=== PATIENT | female | born 1965 | race Caucasian/White ===

== ENCOUNTER 2018-06-01 16:24 | Emergency (ER) | payer OTHER, SELFPAY ==
[2018-06-01 16:44] VITALS: BP 138/82; PULSE 60; RESP 18; TEMP 36.8; O2SAT 100; BMI 35.7
[2018-06-01 17:27] LABS: Alanine Aminotransferase 34 IU/L (9-52); Albumin 4.7 g/dL (3.5-5.0); Albumin Globulin Ratio 1.5 (1.0-2.8); Alkaline Phosphatase 76 U/L (38-126); Aspartate Aminotransferase 34 IU/L (14-36); BUN Creatinine Ratio 18.3 (6-22); Bilirubin Total 0.4 mg/dL (0.2-1.3); Blood Urea Nitrogen 11 mg/dL (7-17); Calcium 9.6 mg/dL (8.4-10.2); Carbon Dioxide 30 mmol/L (22-32); Chloride 104 mmol/L (98-107); Estimated Glomerular Filt Rate > 60.0 mL/min (>60); Globulin 3.2 g/dL (1.7-4.1); Glucose 103 mg/dL (70-100); HEMOLYSIS 28 (0-50); Lipase 91 U/L (23-300); Potassium 4.1 mmol/L (3.4-5.1); Sodium 146 mmol/L (137-145); Total Protein 7.9 g/dL (6.3-8.2)
[2018-06-01 17:30] LABS: Add Manual Diff / Slide Review NO; Basophils Percent Auto 0.4 % (0-2); Eosinophils Percent Auto 2.3 % (2-4); Hematocrit 41.9 % (36-46); Hemoglobin 14.1 g/dL (12.0-16.0); Lymphocytes Percent Auto 37.5 % (25-40); Mean Corpuscular HGB Conc 33.6 % (30-36); Mean Corpuscular Hemoglobin 29.4 PG (26-34); Mean Corpuscular Volume 87.7 fL (80-100); Monocytes Percent Auto 6.5 % (3-14); Neutrophils Absolute Auto 4000 /uL (3000-5900); Neutrophils Percent Auto 53.3 % (50-75); Platelet Count 261 X10^3/uL (150-400); Red Blood Cell Count 4.77 X10^6/uL (4.0-5.2); Red Cell Distribution Width 12.2 % (11.6-14.8); White Blood Cell Count 7.6 X10^3/uL (4.5-11.0)
--- NOTE | 2018-06-01 18:01 | ED_ITS ---
HPI - Abdominal Pain <ERICK Arriola Last Filed: 06/01/18 22:27> General Chief Complaint: Abdominal Pain Stated Complaint: ABD PAIN Time Seen by Provider: 06/01/18 18:00 Source: patient Mode of arrival: ambulatory Limitations: no limitations History of Present Illness HPI narrative: This 52-year-old female comes to ED today due to right-sided abdominal pain. She states that this started on with epigastric/mid abdominal pain. She states that this has gradually moved to the right side, feels mostly in the midline and lower quadrants. She states that initially it would get worse off and on, now it is more dull and persistent. She thinks initially pain worsened with the eating because her abdomen felt distended. She does not think there are exacerbating or alleviating features now. She states that she has had some constipation with more difficulty with bowel movements. Drank some smooth move and had a normal bowel movement this morning. She denies any urinary symptoms. She has not had any nausea or vomiting but has had decreased appetite. She denies any fever at home. She denies any chest pain, dyspnea, new pain or swelling in her extremities. She has not been ill recently with any cough, rash, or other new symptoms. She states that this pain has not acutely worsened at all today, [place] doctor's office told her to would not be able to do much workup there if needed. Related Data Home Medications Medication Instructions Recorded Confirmed DIAZEPAM (Valium) 10 mg PO PRN #0 09/07/10 Fluoxetine Hydrochloride (Prozac) 0 mg PO Q DAY #0 09/07/10 Allergies Allergy/AdvReac Type Severity Reaction Status Date / Time clindamycin Allergy Rash Verified 06/01/18 16:52 Penicillin Allergy Unknown Swelling Uncoded 06/01/18 16:52 of Lip/Tongue/Throat Review of Systems <ERICK Arriola Last Filed: 06/01/18 22:27> Review of Systems All systems reviewed & are unremarkable except as noted in HPI and below PFSH <ERICK Arriola Last Filed: 06/01/18 22:27> Comment: Quit smoking 1993, 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 HEENT: PERRL, EOMI, no scleral icterus NECK: Supple LUNGS: Clear to auscultation bilaterally. HEART: Rate and rhythm regular, normal S1 and S2, no S3 or S4. ABDOMEN: Soft, nondistended, bowel sounds present x 4 quadrants, no masses palpable, no hepatosplenomegaly. Tender over the right epigastrium, mid to lower right quadrant without guarding or rebound. Mild right upper quadrant tenderness. Negative Gamboa's sign. No tenderness over the left side. No CVAT EXTREMITIES: No edema, no cyanosis, no calf tenderness DERMATOLOGIC: No jaundice or exanthem NEUROLOGIC: Alert and oriented with normal speech and coordination Initial Vital Signs Initial Vital Signs: Vital Signs Temperature 98.2 F 06/01/18 16:44 Pulse Rate 60 06/01/18 16:44 Respiratory Rate 18 06/01/18 16:44 Blood Pressure 138/82 06/01/18 16:44 Pulse Oximetry 100 06/01/18 16:44 <Tye Connelly DO - Last Filed: 06/02/18 02:30> Initial Vital Signs Initial Vital Signs: Vital Signs Temperature 98.2 F 06/01/18 16:44 Pulse Rate 60 06/01/18 16:44 Respiratory Rate 18 06/01/18 16:44 Blood Pressure 138/82 06/01/18 16:44 Pulse Oximetry 100 06/01/18 16:44 Course <Anjelica Burnham PA-C - Last Filed: 06/01/18 22:27> Additional Information: Patient reported some improvement in pain while here, tolerating oral fluids. She has not had any acute worsening in her pain, nor new symptoms such as vomiting or fever. Advised there do not appear to be any acute or surgical findings on CT tonight. Advised there could be some uterine fibroids but those are more likely to be chronic, not a clear source of her pain. Discussed the importance of serial abdominal exams, and she agrees to follow up with her PCP tomorrow. Advised further workup may be needed such as sewer inspector or gastroenterology evaluation, but also that this could be a different cause i.e. musculoskeletal. Advised to return if any acutely worsening symptoms , and she is agreeable Orders Ordered: ED Orders 06/01/18 18:23 CT abdomen pelvis w con Stat Discontinued Medications Hydrocodone Bitart/Acetaminophen ([place] 5/325) 1 tab PO NOW ONE Stop: 06/01/18 18:33 Last Admin: 06/01/18 19:25 Dose: 1 tab Sodium Chloride (Normal Saline 0.9%) 1,000 mls @ 150 mls/hr IV CONT EDDIE Last Admin: 06/01/18 20:31 Dose: Not Given Sodium Chloride (Normal Saline 0.9%) 1,000 mls @ 1,000 mls/hr IV BOLUS ONE Stop: 06/01/18 19:22 Last Infusion: 06/01/18 20:31 Dose: 0 mls/hr Admin: 06/01/18 19:00 Dose: 1,000 mls/hr Ketorolac Tromethamine (Toradol) 30 mg IV NOW ONE Stop: 06/01/18 18:24 Last Admin: 06/01/18 19:00 Dose: 30 mg Vital Signs - 8 hr 06/01/18 19:30 06/01/18 20:37 Pulse Rate 74 58 L Respiratory Rate 18 14 Blood Pressure 114/54 L Blood Pressure [Left Arm] 124/64 Pulse Oximetry 98 98 <Tye Connelly, DO - Last Filed: 06/02/18 02:30> Orders Ordered: ED Orders 06/01/18 18:23 CT abdomen pelvis w con Stat Discontinued Medications Hydrocodone Bitart/Acetaminophen ([place] 5/325) 1 tab PO NOW ONE Stop: 06/01/18 18:33 Last Admin: 06/01/18 19:25 Dose: 1 tab Sodium Chloride (Normal Saline 0.9%) 1,000 mls @ 150 mls/hr IV CONT EDDIE Last Admin: 06/01/18 20:31 Dose: Not Given Sodium Chloride (Normal Saline 0.9%) 1,000 mls @ 1,000 mls/hr IV BOLUS ONE Stop: 06/01/18 19:22 Last Infusion: 06/01/18 20:31 Dose: 0 mls/hr Admin: 06/01/18 19:00 Dose: 1,000 mls/hr Ketorolac Tromethamine (Toradol) 30 mg IV NOW ONE Stop: 06/01/18 18:24 Last Admin: 06/01/18 19:00 Dose: 30 mg Vital Signs - 8 hr 06/01/18 19:30 06/01/18 20:37 Pulse Rate 74 58 L Respiratory Rate 18 14 Blood Pressure 114/54 L Blood Pressure [Left Arm] 124/64 Pulse Oximetry 98 98 MDM - Abdominal Pain <Anjelica Burnham PA-C - Last Filed: 06/01/18 22:27> Lab Data Attestation: I reviewed the patient's lab results. Result diagrams: 06/01/18 17:05 06/01/18 17:05 Lab Results 06/01/18 06/01/18 Range/Units 17: 17:05 WBC 7.6 (4.5-11.0) X10^3/uL RBC 4.77 (4.0-5.2) X10^6/uL Hgb 14.1 (12.0-16.0) g/dL Hct 41.9 (36-46) % MCV 87.7 (80-100) fL MCH 29.4 (26-34) PG MCHC 33.6 (30-36) % RDW 12.2 (11.6-14.8) % Plt Count 261 (150-400) X10^3/uL Neut % (Auto) 53.3 (50-75) % Lymph % (Auto) 37.5 (25-40) % Custer % (Auto) 6.5 (3-14) % Eos % (Auto) 2.3 (2-4) % Baso % (Auto) 0.4 (0-2) % Neut # (Auto) 4000 (4892-6657) /uL Sodium 146 H (137-145) mmol/L Potassium 4.1 (3.4-5.1) mmol/L Chloride 104 (98-107) mmol/L Carbon Dioxide 30 (22-32) mmol/L BUN 11 (7-17) mg/dL Creatinine 0.60 (0.52-1.04) mg/dL Estimated GFR > 60.0 (>60) mL/min BUN/Creatinine Ratio 18.3 (6-22) Glucose 103 H (70-100) mg/dL Calcium 9.6 (8.4-10.2) mg/dL Total Bilirubin 0.4 (0.2-1.3) mg/dL AST 34 (14-36) IU/L ALT 34 (9-52) IU/L Alkaline Phosphatase 76 (38-126) U/L Total Protein 7.9 (6.3-8.2) g/dL Albumin 4.7 (3.5-5.0) g/dL Globulin 3.2 (1.7-4.1) g/dL Albumin/Globulin Ratio 1.5 (1.0-2.8) Lipase 91 (23-300) U/L Point of care testing: Urine Dip Bedside Urine Glucose Negative Bedside Urine Bilirubin - Negative Bedside Urine Ketone - Negative Urine Specific [place] 1.015 Bedside Urine Occult Blood - Negative Bedside Urine pH 6.0 Bedside Urine Protein - Negative Bedside Urine Urobilinogen - Negative Bedside Urine Nitrite - Negative Bedside Urine Leukocytes - Negative Esterase Imaging Data CT scan - abdomen: Radiologist's impression: [address] [address] [address] Scan Report Signed Patient: Christa Eddy#: [id number] : 1965Acct:[id number] Age/Sex: 52 / FDate of Service: 06/01/18 Loc: ED Accession Number: [id number] Procedure: CT abdomen pelvis w con Ordering Provider: Anjelica Burnham P.A-C PROCEDURE: CT ABDOMEN PELVIS W CON INDICATIONS: R. epigastric and LQ pain TECHNIQUE: After the administration of intravenous contrast, 5 mm thick sections acquired from the diaphragm to the symphysis. 5 mm coronal and sagittal reformats were acquired. For radiation dose reduction, the following was used: automated exposure control, adjustment of mA and/or kV according to patient size. COMPARISON: [facility], CT, ABDOMEN/PELVIS WITH CONTRAST, 12/17/2009, 13: 06. FINDINGS: Image quality: Excellent. ABDOMEN: Lung bases: Mild dependent atelectasis in posterior aspect of bilateral lung bases are seen. Heart size is normal. Solid organs: Liver is normal in size. Diffuse hepatic steatosis is again seen 1.2 cm fluid density structure is noted involving inferior aspect of right hepatic lobe and likely represent hepatic cysts. Gallbladder is within normal limits. Biliary system is non dilated. Pancreas enhances normally. Spleen is normal in size and enhancement. No adrenal nodules. Kidneys demonstrate normal size and enhancement, without hydronephrosis. 1.4 cm right renal cyst is is seen in midpole of right kidney. Peritoneum and bowel: Bowel loops demonstrate normal wall thickness and caliber. No free fluid or air. Nodes and vessels: No retroperitoneal or mesenteric adenopathy by size criteria. Aorta and inferior vena cava are normal in size. Miscellaneous: No ventral hernias. PELVIS: Genitourinary: Bladder wall thickness is normal. Slightly bulky appearing uterus is seen which may represent uterine fibroids. Miscellaneous: No inguinal hernias or adenopathy. Bones: No suspicious bony lesions. No vertebral body compression fractures. IMPRESSION: 1. Hepatic steatosis. No discrete hepatic lesion. Small cyst in right eye globe as above. Normal-appearing gallbladder. No biliary ductal dilatation. 2. No bowel structure. No peritoneal free fluid or free air. 3. Mildly bulky appearing uterus suggestive of uterine fibroid. 4. No renal stone or hydronephrosis. Dictated by: Alonso Duran M.D. on 06/01/2018 at 18:49 Approved by: Alonso Duran M.D. on 06/01/2018 at 18:52 <Tye Connelly DO - Last Filed: 06/02/18 02:30> Lab Data Lab Results 06/01/18 06/01/18 Range/Units 17:05 17:05 WBC 7.6 (4.5-11.0) X10^3/uL RBC 4.77 (4.0-5.2) X10^6/uL Hgb 14.1 (12.0-16.0) g/dL Hct 41.9 (36-46) % MCV 87.7 (80-100) fL MCH 29.4 (26-34) PG MCHC 33.6 (30-36) % RDW 12.2 (11.6-14.8) % Plt Count 261 (150-400) X10^3/uL Neut % (Auto) 53.3 (50-75) % Lymph % (Auto) 37.5 (25-40) % [place] % (Auto) 6.5 (3-14) % Eos % (Auto) 2.3 (2-4) % Baso % (Auto) 0.4 (0-2) % Neut # (Auto) 4000 (7538-6244) /uL Sodium 146 H (137-145) mmol/L Potassium 4.1 (3.4-5.1) mmol/L Chloride 104 (98-107) mmol/L Carbon Dioxide 30 (22-32) mmol/L BUN 11 (7-17) mg/dL Creatinine 0.60 (0.52-1.04) mg/dL Estimated GFR > 60.0 (>60) mL/min BUN/Creatinine Ratio 18.3 (6-22) Glucose 103 H (70-100) mg/dL Calcium 9.6 (8.4-10.2) mg/dL Total Bilirubin 0.4 (0.2-1.3) mg/dL AST 34 (14-36) IU/L ALT 34 (9-52) IU/L Alkaline Phosphatase 76 (38-126) U/L Total Protein 7.9 (6.3-8.2) g/dL Albumin 4.7 (3.5-5.0) g/dL Globulin 3.2 (1.7-4.1) g/dL Albumin/Globulin Ratio 1.5 (1.0-2.8) Lipase 91 (23-300) U/L Point of care testing: Urine Dip Bedside Urine Glucose Negative Bedside Urine Bilirubin - Negative Bedside Urine Ketone - Negative Urine Specific [place] 1.015 Bedside Urine Occult Blood - Negative Bedside Urine pH 6.0 Bedside Urine Protein - Negative Bedside Urine Urobilinogen - Negative Bedside Urine Nitrite - Negative Bedside Urine Leukocytes - Negative Esterase Discharge Plan Departure Patient Disposition: Home Clinical Impression: Abdominal pain Discharge Date/Time: 06/01/18 20:37 Interventions: ED Discharge Assessment Last Done: 06/01/18 20:37 Instructions: DI for Abdominal Pain-Adult Activity Restrictions/Additional Instructions: You should return as we discussed if you have acutely worsening pain, or new symptoms such as vomiting or fever. Please call your PCP office 1st thing in the morning and let them know that you need to be seen for follow-up from your ED visit for abdominal pain, you should be seen tomorrow. It is important to do repeat exams for this. There was no acute problem found on your lab work or CT scan today such as a gallbladder or appendix problem. You had a little bit of fat on your liver which is unlikely to cause acute pain. You may have some uterine fibroids. As we talked about, you may need some further testing such as gynecological evaluation or a gastroenterology specialist. You can take over -the-counter pain medication as needed. Stick with bland foods for now and use stool softener if needed. Prescriptions: No Action Fluoxetine Hydrochloride (Prozac) PO Q DAY Qty: 0 RF: 0 DIAZEPAM (Valium) 10 mg PO PRN Qty: 0 RF: 0 Referrals: Oleksandr Prince MD [Primary Care Provider] - <Tye Connelly DO - Last Filed: 06/02/18 02:30> Cosign ED Attending Ambarature Attestation: I was immediately available in the department for consultation. Documentation has been reviewed. I agree with assessment and plan.
--- NOTE | 2018-06-01 18:23 | DI.CT.S_ITS ---
PROCEDURE: CT ABDOMEN PELVIS W CON INDICATIONS: R. epigastric and LQ pain TECHNIQUE: After the administration of intravenous contrast, 5 mm thick sections acquired from the diaphragm to the symphysis. 5 mm coronal and sagittal reformats were acquired. For radiation dose reduction, the following was used: automated exposure control, adjustment of mA and/or kV according to patient size. COMPARISON: [facility], CT, ABDOMEN/PELVIS WITH CONTRAST, 12/17/2009, 13:06. FINDINGS: Image quality: Excellent. ABDOMEN: Lung bases: Mild dependent atelectasis in posterior aspect of bilateral lung bases are seen. Heart size is normal. Solid organs: Liver is normal in size. Diffuse hepatic steatosis is again seen 1.2 cm fluid density structure is noted involving inferior aspect of right hepatic lobe and likely represent hepatic cysts. Gallbladder is within normal limits. Biliary system is non dilated. Pancreas enhances normally. Spleen is normal in size and enhancement. No adrenal nodules. Kidneys demonstrate normal size and enhancement, without hydronephrosis. 1.4 cm right renal cyst is is seen in midpole of right kidney. Peritoneum and bowel: Bowel loops demonstrate normal wall thickness and caliber. No free fluid or air. Nodes and vessels: No retroperitoneal or mesenteric adenopathy by size criteria. Aorta and inferior vena cava are normal in size. Miscellaneous: No ventral hernias. PELVIS: Genitourinary: Bladder wall thickness is normal. Slightly bulky appearing uterus is seen which may represent uterine fibroids. Miscellaneous: No inguinal hernias or adenopathy. Bones: No suspicious bony lesions. No vertebral body compression fractures. IMPRESSION: 1. Hepatic steatosis. No discrete hepatic lesion. Small cyst in right eye globe as above. Normal-appearing gallbladder. No biliary ductal dilatation. 2. No bowel structure. No peritoneal free fluid or free air. 3. Mildly bulky appearing uterus suggestive of uterine fibroid. 4. No renal stone or hydronephrosis. Dictated by: Alonso Duran M.D. on 06/01/2018 at 18:49 Approved by: Alonso Duran M.D. on 06/01/2018 at 18:52
[2018-06-01 18:30] VITALS: BP 124/64; PULSE 77; RESP 16; O2SAT 96
[2018-06-01] MEDS: KETOROLAC 60 MG/2 ML VIAL 30 MG IV (19:00)
[2018-06-01] MEDS: SODIUM CHLORIDE 0.9% 1,000 ML 1000 ML IV (19:00)
[2018-06-01] MEDS: HYDROCODONE/ACET 5/325 TABLET 1 TAB PO (19:25)
[2018-06-01 19:30] VITALS: BP 124/64; PULSE 74; RESP 18; O2SAT 98
[2018-06-01 20:37] VITALS: BP 114/54; PULSE 58; RESP 14; O2SAT 98
== END 2018-06-01 20:37 | disposition home or self-care (01) ==
PROVIDERS: Emergency Medicine; Emergency Provider Internal Medicine; PCP Family Medicine
DX: R10.9 Unspecified abdominal pain (principal)
CPT/HCPCS: 36591; 74177; 80053; 81003; 83690; 85025; 96361; 96374; 99283; 99285; J1885; Q9967

== ENCOUNTER 2019-10-12 08:54 | Day surgery (SDC) | payer OTHER, SELFPAY ==
[2019-10-12] VITALS (11 sets, daily range): BP systolic 80–113; BP diastolic 41–65; PULSE 47–62; RESP 10–16; TEMP 36.1–37; O2SAT 92–98; BMI 37.3
[2019-10-12] MEDS: LACTATED RINGERS 1,000 ML 42 ML IV (10:31)
--- NOTE | 2019-10-12 11:41 | PM.PREOP ---
Pre-operative Note Interval Note History & Physical reviewed/Exam performed by Physician: Yes Changes to H&P: No
[2019-10-12] MEDS: atenoloL 50 MG TABLET PO (11:49)
--- NOTE | 2019-10-12 12:11 | SUR.OPER ---
Lithotomy on padded OR bed, head on pillow, arms secured on padded arm boards at <90 degrees abduction. Legs secured in padded yellow fins stirrups.
[2019-10-12] MEDS: BUPIVACAINE 0.25% (PF) VIAL 30 ML INJ (12:21)
--- NOTE | 2019-10-12 12:35 | PM.OP.1 ---
Operative Date/Time/Diagnoses Date of procedure: 10/12/19 Time of procedure: 12:35 Pre-op diagnosis: Perianal abscess Post-op diagnosis: same Procedure & Clinicians Procedure: Examination under anesthesia. Incision and drainage of perianal abscess Same procedure as scheduled: Yes Indications: Right perianal fluctuance Surgeon: Inder Alexis Click Yes if Unassisted: Yes Anesthesia Type: General Operative Notes Findings: Resolved perianal abscess Specimen(s): other (Tissue from perianal abscess) Estimated Blood Loss (mL): 10 Procedure in detail: Brought to the operating room and placed supine on the table. Bilateral lower extremity compression devices were applied. General anesthesia was induced she was intubated with an LMA. Time-out was performed ensure the correct patient procedure necessary equipment within the operating room. She was prepped and draped in sterile fashion. Internal examination of the rectum was made there was no evidence of a perirectal fistula. As an area at the left lateral position approximately 3 cm away from the anus of fluctuance was observed. A cruciate incision was made over the area of greatest fluctuance in the subcutaneous tissues were divided. A resolving perianal abscess was encountered. There was no gross purulence. Small sample of tissue was taken and sent for culture. The wound was thoroughly irrigated hemostasis was achieved and it was packed with iodoform gauze. Patient emerged from anesthesia was extubated and transferred to the recovery room in stable condition. Complications: none Post-operative Condition: stable Disposition: same day surgery
[2019-10-12] MEDS: ONDANSETRON 4 MG/2 ML INJ IV (13:32)
[2019-10-12] MEDS: OXYCODONE/ACETAMINOPHEN 5/325 TABLET 1 TAB PO (13:32)
== END 2019-10-12 14:11 | disposition home or self-care (01) ==
PROVIDERS: PCP Family Medicine; Referring Provider Surgery; Visit Provider Surgery
PROC: (CPT 45990; principal; 2019-10-12 11:15)
DX: K61.1 Rectal abscess (principal)
CPT/HCPCS: 46040; 87070; 87075; 87077; 87186; 87205; J1100; J1885; J2250; J2405; J2704; J3010

== ENCOUNTER 2020-07-27 14:11 | Emergency (ER) | payer OTHER, SELFPAY ==
[2020-07-27] VITALS (10 sets, daily range): BP systolic 109–143; BP diastolic 57–72; PULSE 59–72; RESP 12–18; TEMP 36.9–37.2; O2SAT 95–99; BMI 34.9
--- NOTE | 2020-07-27 14:34 | DI.CT.S_ITS ---
PROCEDURE: CT ABDOMEN PELVIS W CON INDICATIONS: RLQ and RUQ pain TECHNIQUE: After the administration of intravenous contrast, 5 mm thick sections acquired from the diaphragm to the symphysis. 5 mm coronal and sagittal reformats were acquired. For radiation dose reduction, the following was used: automated exposure control, adjustment of mA and/or kV according to patient size. COMPARISON: [facility], CT, CT ABDOMEN PELVIS W CON, 06/01/2018, 18:30. FINDINGS: Image quality: Excellent. ABDOMEN: Lung bases: Lung bases are clear. Heart size is normal. Solid organs: Liver is normal in size and enhancement. Multiple small hepatic cysts versus hemangiomata. Gallbladder is unremarkable.. Biliary system is non dilated. Pancreas enhances normally. Spleen is normal in size and enhancement. No adrenal nodules. Kidneys demonstrate normal size and enhancement, without hydronephrosis. Peritoneum and bowel: Bowel loops demonstrate normal wall thickness and caliber. No free fluid or air. Nodes and vessels: No retroperitoneal or mesenteric adenopathy by size criteria. Aorta and inferior vena cava are normal in size. Miscellaneous: No ventral hernias. PELVIS: Genitourinary: Bladder wall thickness is normal. Miscellaneous: No inguinal hernias or adenopathy. Anterior subserosal uterine fibroid indenting on the superior aspect of the bladder measuring approximately 3.1 x 2.7 cm. Bones: No suspicious bony lesions. No vertebral body compression fractures. IMPRESSION: 1. Incidental uterine fibroid. 2. No evidence of acute abdominal process. Dictated by: Manjeet Lozoya M.D. on 07/27/2020 at 16:18 Approved by: Manjeet Lozoya M.D. on 07/27/2020 at 16:20
--- NOTE | 2020-07-27 14:42 | ED_ITS ---
HPI - Abdominal Pain <Suze CraftROBERT - Last Filed: 07/27/20 21:12> General Chief Complaint: Abdominal Pain Stated Complaint: Possible Appendicitis Time Seen by Provider: 07/27/20 14:14 Source: patient Mode of arrival: Ambulatory Limitations: no limitations History of Present Illness HPI narrative: 54yo female with a history of palpitations and HLD, present to the ED for R-sided abdominal pain that started about 2-3 days ago. Patient states pain is worse with movement and pressure to the area. She states she saw Dr. Prince this AM own was told to come to the emergency department for further evaluation. Patient reports intermittent nausea but no vomiting or diarrhea. She denies any fevers but states her temp has been elevated to 99 F and she has associated chills. Patient denies any other symptoms such as chest pain, cough, dizziness, sore throat, constipation, or any other concerns. She denies any major surgeries. Related Data Home Medications Medication Instructions Recorded Confirmed B-complex with vitamin C 1 cap PO DAILY 10/06/19 10/12/19 ascorbic acid (vitamin C) 1,000 mg 1 gram PO DAILY tab 10/06/19 10/12/19 tablet aspirin 81 mg tablet,delayed 81 mg PO DAILY 10/06/19 10/12/19 release atenolol 50 mg tablet 50 mg PO DAILY 10/06/19 10/12/19 atorvastatin 40 mg tablet 40 mg PO BEDTIME 10/06/19 10/12/19 black cohosh 200 mg capsule 200 mg PO DAILY 10/06/19 10/12/19 cholecalciferol (vitamin D3) 100 4,000 unit PO DAILY 10/06/19 10/12/19 mcg (4,000 unit) capsule lidocaine 5 % topical ointment 1 applictn TOP DAILY 10/06/19 10/12/19 magnesium oxide 400 mg PO DAILY 10/06/19 10/12/19 sumatriptan succinate 100 mg tablet 100 mg PO Q2H PRN tab 10/06/19 10/12/19 Previous Rx's Medication Instructions Recorded acetaminophen [Tylenol] 650 mg PO QID PRN #60 cap 10/12/19 oxycodone 5 mg PO Q6H PRN #30 tab 10/12/19 Allergies Allergy/AdvReac Type Severity Reaction Status Date / Time Penicillins Allergy Severe lips, Verified 07/27/20 14:25 tongue throat swelling, childhood clindamycin Allergy Rash Verified 07/27/20 14:25 Review of Systems <ROBERT Jimenez - Last Filed: 07/27/20 21:12> Review of Systems Narrative: REVIEW OF SYSTEMS: GENERAL: Denies fever, reports chills. HENT: No head trauma. CARDIOVASCULAR: No chest pain. RESPIRATORY: No shortness of breath or cough. GASTROINTESTINAL: Complains of right sided abdominal pain, see HPI GENITOURINARY: No flank pain. MUSCULOSKELETAL: No injury. INTEGUMENTARY: No rash, lesions, or pruritus. NEURO: No headaches. PSYCH: No behavior or mood changes. Patient History <ROBERT Jimenez - Last Filed: 07/27/20 21:12> Medical History (Updated 07/27/20 @ 16:48 by ROBERT Jimenez) CAD (coronary artery disease) PVCs (premature ventricular contractions) Surgical History History of History of elbow surgery History of knee surgery History of unilateral salpingectomy Family History Father Congestive heart failure Diabetes mellitus Hypertension Brother Hypertension Social History household members: spouse Smoking Status: Former smoker alcohol intake: former Smoking Status: Former smoker alcohol intake frequency: 0-2 drinks per day Substance Use Type: does not use Exam <ROBERT Jimenez - Last Filed: 07/27/20 21:12> Initial Vital Signs Initial Vital Signs: Vital Signs Temperature 98.9 F 07/27/20 14:18 Pulse Rate 72 07/27/20 14:18 Respiratory Rate 15 07/27/20 14:18 Blood Pressure 143/72 H 07/27/20 14:18 Pulse Oximetry 99 07/27/20 14:18 PHYSICAL EXAMINATION: GENERAL: 54-year-old female, awake and alert, appears to be in pain. HENT: Normocephalic, atraumatic. Hearing intact. Oral mucosa is pink and moist. EYES: Conjunctiva pink, sclera white, no periorbital swelling. CARDIOVASCULAR: S1 and S2 sounds normal. Regular rate and rhythm, no murmurs, clicks, or bruits. No pedal edema. RESPIRATORY: Normal respiratory rate, trachea midline, airway patent. No stridor, nasal flaring or accessory muscle use. Lungs are clear in all dash without wheeze, rhonchi, or crackles. GASTROINTESTINAL: Bowel sounds normoactive. Abdomen is soft and R lower and mid-quadrant abdominal pain with palpation, no rebound tenderness. No organomegaly, no palpable masses. GENITALURINARY: No flank tenderness. no vaginal discharge. MUSCULOSKELETAL: Normal gait and coordination. Equal tone and mass bilaterally. EXTREMITIES: CMS intact. SKIN: Warm, dry, soft, appropriate color for ethnicity. No lesions, rashes, or wounds to visualized areas. NEURO: Alert and Oriented X 3. Good coordination. No ataxia, or sensory deficits, or cognitive issues. PSYCH: Appropriate affect and mood. <Jazzmine Collier DO - Last Filed: 08/02/20 09:05> Initial Vital Signs Initial Vital Signs: Vital Signs Temperature 98.9 F 07/27/20 14:18 Pulse Rate 72 07/27/20 14:18 Respiratory Rate 15 07/27/20 14:18 Blood Pressure 143/72 H 07/27/20 14:18 Pulse Oximetry 99 07/27/20 14:18 Course <ROBERT Jimenez - Last Filed: 07/27/20 21:12> Course Course Narrative: Patient initially given IV fluid, Toradol, and ondansetron upon examination. Orders Ordered: Discontinued Medications Sodium Chloride (Normal Saline 0.9%) 1,000 mls @ 1,000 mls/hr IV BOLUS ONE Stop: 07/27/20 15:17 Last Infusion: 07/27/20 15:45 Dose: 0 mls/hr Documented by: Admin: 07/27/20 14:48 Dose: 1,000 mls/hr Documented by: DEDE Ketorolac Tromethamine (Ketorolac 60 Mg/2 Ml Vial) 30 mg IM NOW ONE Stop: 07/27/20 14:35 Last Admin: 07/27/20 14:48 Dose: 30 mg Documented by: DEDE Ondansetron HCl (Ondansetron 4 Mg/2 Ml Inj) 4 mg IV NOW ONE Stop: 07/27/20 14:35 Last Admin: 07/27/20 14:49 Dose: 4 mg Documented by: DEDE Reevaluation(s) Reevaluation #1: Patient staffed with Dr. Collier Vital Signs Vital signs: Vital Signs - 8 hr 07/27/20 14:18 07/27/20 14:56 07/27/20 14:57 Temperature 98.9 F Pulse Rate 72 64 Respiratory Rate 15 14 Blood Pressure 143/72 H 126/60 Pulse Oximetry 99 98 07/27/20 15:00 07/27/20 15:30 07/27/20 15:31 Temperature Pulse Rate 63 61 59 L Respiratory Rate 15 14 12 Blood Pressure 117/57 L 137/70 Pulse Oximetry 95 97 96 07/27/20 15:59 07/27/20 16:00 07/27/20 16:30 Temperature Pulse Rate 63 63 61 Respiratory Rate 12 13 17 Blood Pressure 135/59 L 128/59 L 121/60 Pulse Oximetry 99 98 96 07/27/20 16:50 Temperature 98.5 F Pulse Rate 65 Respiratory Rate 18 Blood Pressure 109/60 Pulse Oximetry 98 <Jazzmine Collier, - Last Filed: 08/02/20 09:05> Orders Ordered: Discontinued Medications Sodium Chloride (Normal Saline 0.9%) 1,000 mls @ 1,000 mls/hr IV BOLUS ONE Stop: 07/27/20 15:17 Last Infusion: 07/27/20 15:45 Dose: 0 mls/hr Documented by: Admin: 07/27/20 14:48 Dose: 1,000 mls/hr Documented by: DEDE Ketorolac Tromethamine (Ketorolac 60 Mg/2 Ml Vial) 30 mg IM NOW ONE Stop: 07/27/20 14:35 Last Admin: 07/27/20 14:48 Dose: 30 mg Documented by: DEDE Ondansetron HCl (Ondansetron 4 Mg/2 Ml Inj) 4 mg IV NOW ONE Stop: 07/27/20 14:35 Last Admin: 07/27/20 14:49 Dose: 4 mg Documented by: DEDE Vital Signs Vital signs: Vital Signs - 8 hr 07/27/20 14:18 07/27/20 14:56 07/27/20 14:57 Temperature 98.9 F Pulse Rate 72 64 Respiratory Rate 15 14 Blood Pressure 143/72 H 126/60 Pulse Oximetry 99 98 07/27/20 15:00 07/27/20 15:30 07/27/20 15:31 Temperature Pulse Rate 63 61 59 L Respiratory Rate 15 14 12 Blood Pressure 117/57 L 137/70 Pulse Oximetry 95 97 96 07/27/20 15:59 07/27/20 16:00 07/27/20 16:30 Temperature Pulse Rate 63 63 61 Respiratory Rate 12 13 17 Blood Pressure 135/59 L 128/59 L 121/60 Pulse Oximetry 99 98 96 07/27/20 16:50 Temperature 98.5 F Pulse Rate 65 Respiratory Rate 18 Blood Pressure 109/60 Pulse Oximetry 98 MDM - Abdominal Pain <ROBERT Jimenez - Last Filed: 07/27/20 21:12> Medical Records Attestation: I reviewed the patient's medical records. Lab Data Attestation: I reviewed the patient's lab results. Result diagrams: 07/27/20 14:45 07/27/20 14:45 Labs: Lab Results 07/27/20 07/27/20 07/27/20 Range/Units 14:45 14:45 14:45 WBC 8.1 (4.5-11.0) X10^3/uL RBC 4.46 (4.0-5.2) X10^6/uL Hgb 13.7 (12.0-16.0) g/dL Hct 39.6 (36-46) % MCV 88.7 (80-100) fL MCH 30.7 (26-34) PG MCHC 34.6 (30-36) % RDW 12.4 (11.6-14.8) % Plt Count 212 (150-400) X10^3/uL Neut % (Auto) 58.8 (50-75) % Lymph % (Auto) 30.4 (25-40) % Centre % (Auto) 8.3 (3-14) % Eos % (Auto) 1.7 L (2-4) % Baso % (Auto) 0.8 (0-2) % Neut # (Auto) 4800 (4428-7828) /uL Lymph # (Auto) 2500 (8378-4146) /uL Centre # (Auto) 700 (0-900) /uL Eos # (Auto) 100 (0-450) /uL Baso # (Auto) 100 (0-100) /uL PT 13.7 H (10.1-12.7) SECONDS INR 1.2 (0.9-1.3) APTT 28 (26.4-36.2) SECONDS Sodium 141 (137-145) mmol/L Potassium 3.7 (3.4-5.1) mmol/L Chloride 106 (98-107) mmol/L Carbon Dioxide 28 (22-32) mmol/L BUN 9 (7-17) mg/dL Creatinine 0.60 (0.52-1.04) mg/dL Estimated GFR > 60.0 (>60) mL/min BUN/Creatinine Ratio 15.0 (6-22) Glucose 123 H (70-100) mg/dL Calcium 9.3 (8.4-10.2) mg/dL Total Bilirubin 0.8 (0.2-1.3) mg/dL AST 26 (14-36) IU/L ALT 22 (<35) IU/L Alkaline Phosphatase 63 (38-126) U/L Total Protein 7.6 (6.3-8.2) g/dL Albumin 4.4 (3.5-5.0) g/dL Globulin 3.2 (1.7-4.1) g/dL Albumin/Globulin Ratio 1.4 (1.0-2.8) Lipase 76 (23-300) U/L Point of care testing: Point of Care Testing Test Results Negative Urine Dip Bedside Urine Glucose Negative Bedside Urine Bilirubin - Negative Bedside Urine Ketone - Negative Urine Specific [place] 1.010 Bedside Urine Occult Blood ++ Bedside Urine pH 6.0 Bedside Urine Protein - Negative Bedside Urine Urobilinogen +/- 1mg Bedside Urine Nitrite - Negative Bedside Urine Leukocytes - Negative Esterase Imaging Data CT scan - abdomen/pelvis: Radiologist's Impression: [address] [id number] Scan ReportSigned Patient: Elizabeth Eddy KMR#: [id number]: [id number]:[id number]/Sex: 54 / FDate of Service: 07/27/20Loc: EDAccession Number: [id number] Procedure: CT abdomen pelvis w con Ordering Provider: Suze Craft PROCEDURE: CT ABDOMEN PELVIS W CON INDICATIONS: RLQ and RUQ pain TECHNIQUE: After the administration of intravenous contrast, 5 mm thick sections acquired from the diaphragm to the symphysis. 5 mm coronal and sagittal reformats were acquired. For radiation dose reduction, the following was used: automated exposure control, adjustment of mA and/or kV according to patient size. COMPARISON: [facility], CT, CT ABDOMEN PELVIS W CON, 06/01/2018, 18:30. FINDINGS: Image quality: Excellent. ABDOMEN: Lung bases: Lung bases are clear. Heart size is normal. Solid organs: Liver is normal in size and enhancement. Multiple small hepatic cysts versus hemangiomata. Gallbladder is unremarkable.. Biliary system is non dilated. Pancreas enhances normally. Spleen is normal in size and enhancement. No adrenal nodules. Kidneys demonstrate normal size and enhancement, without hydronephrosis. Peritoneum and bowel: Bowel loops demonstrate normal wall thickness and caliber . No free fluid or air. Nodes and vessels: No retroperitoneal or mesenteric adenopathy by size criteria. Aorta and inferior vena cava are normal in size. Miscellaneous: No ventral hernias. PELVIS: Genitourinary: Bladder wall thickness is normal. Miscellaneous: No inguinal hernias or adenopathy. Anterior subserosal uterine fibroid indenting on the superior aspect of the bladder measuring approximately 3.1 x 2.7 cm. Bones: No suspicious bony lesions. No vertebral body compression fractures. IMPRESSION: 1. Incidental uterine fibroid. 2. No evidence of acute abdominal process. Dictated by: Manjeet Lozoya M.D. on 07/27/2020 at 16:18 Approved by: Manjeet Lozoya M.D. on 07/27/2020 at 16:20 [facility] Narrative Medical decision making narrative: 54-year-old female presents emergency dep artment for right abdominal pain. I am unsure the exact cause of abdominal pain, may be due to musculoskeletal versus viral etiology. No concerns for acute infection except such as appendicitis or cholecystitis given negative results on CT, gallbladder was visualized without inflammation or stones. No ovarian cyst. Incidental fibroid was found but is most likely not contributory to pain. Urine is negative for infection, no vaginal discharge. There was a small amount of blood noted in POC urine however, no renal calculi seen on CT Patient is hemodynamically stable, afebrile, and without leukocytosis. She is well-appearing and reports decreased pain after administration of Toradol. She was encouraged to follow up with PCP in the next few days. Return precautions given for new or worsening symptoms. Patient agreed to plan of care verbalized understanding. <Jazzmine Collier, - Last Filed: 08/02/20 09:05> Lab Data Labs: Lab Results 07/27/20 07/27/20 07/27/20 Range/Units 14:45 14:45 14:45 WBC 8.1 (4.5-11.0) X10^3/uL RBC 4.46 (4.0-5.2) X10^6/uL Hgb 13.7 (12.0-16.0) g/dL Hct 39.6 (36-46) % MCV 88.7 (80-100) fL MCH 30.7 (26-34) PG MCHC 34.6 (30-36) % RDW 12.4 (11.6-14.8) % Plt Count 212 (150-400) X10^3/uL Neut % (Auto) 58.8 (50-75) % Lymph % (Auto) 30.4 (25-40) % Centre % (Auto) 8.3 (3-14) % Eos % (Auto) 1.7 L (2-4) % Baso % (Auto) 0.8 (0-2) % Neut # (Auto) 4800 (3137-6531) /uL Lymph # (Auto) 2500 (3929-1935) /uL Centre # (Auto) 700 (0-900) /uL Eos # (Auto) 100 (0-450) /uL Baso # (Auto) 100 (0-100) /uL PT 13.7 H (10.1-12.7) SECONDS INR 1.2 (0.9-1.3) APTT 28 (26.4-36.2) SECONDS Sodium 141 (137-145) mmol/L Potassium 3.7 (3.4-5.1) mmol/L Chloride 106 (98-107) mmol/L Carbon Dioxide 28 (22-32) mmol/L BUN 9 (7-17) mg/dL Creatinine 0.60 (0.52-1.04) mg/dL Estimated GFR > 60.0 (>60) mL/min BUN/Creatinine Ratio 15.0 (6-22) Glucose 123 H (70-100) mg/dL Calcium 9.3 (8.4-10.2) mg/dL Total Bilirubin 0.8 (0.2-1.3) mg/dL AST 26 (14-36) IU/L ALT 22 (<35) IU/L Alkaline Phosphatase 63 (38-126) U/L Total Protein 7.6 (6.3-8.2) g/dL Albumin 4.4 (3.5-5.0) g/dL Globulin 3.2 (1.7-4.1) g/dL Albumin/Globulin Ratio 1.4 (1.0-2.8) Lipase 76 (23-300) U/L Point of care testing: Point of Care Testing Test Results Negative Urine Dip Bedside Urine Glucose Negative Bedside Urine Bilirubin - Negative Bedside Urine Ketone - Negative Urine Specific [place] 1.010 Bedside Urine Occult Blood ++ Bedside Urine pH 6.0 Bedside Urine Protein - Negative Bedside Urine Urobilinogen +/- 1mg Bedside Urine Nitrite - Negative Bedside Urine Leukocytes - Negative Esterase Discharge Plan Departure Patient Disposition: Home Clinical Impression: Abdominal pain Qualifiers: Abdominal location: generalized Qualified Code(s): R10.84 - Generalized abdominal pain Instructions: DI for Abdominal Pain-Adult Activity Restrictions/Additional Instructions: Thank you for entrusting me with your care today. As discussed, your laboratory work, urinalysis, and abdominal CT are negative for any concerning findings. There was an incidental finding of a uterine fibroid on CT, however, I do not think that this is causing your pain. I am unsure the exact cause of your pain at this time. I suggest following up with your primary care provider in the next 1-2 weeks for further evaluation. Eat a bland diet for the next few days. Return emergency department for any new or worsening symptoms. Prescriptions: No Action atenolol 50 mg tablet 50 mg PO DAILY RF: 0 cholecalciferol (vitamin D3) 4,000 unit capsule 4,000 unit PO DAILY RF: 0 aspirin [Aspir-81] 81 mg tablet,delayed release (DR/EC) 81 mg PO DAILY RF: 0 atorvastatin 40 mg tablet 40 mg PO BEDTIME RF: 0 B-complex with vitamin C Capsule 1 cap PO DAILY RF: 0 ascorbic acid (vitamin C) 1,000 mg tablet 1 gram PO DAILY RF: 0 sumatriptan succinate 100 mg tablet 100 mg PO Q2H PRN (Reason: Migraine Headache) RF: 0 lidocaine 5 % ointment 1 applictn TOP DAILY RF: 0 magnesium oxide 400 mg magnesium tablet 400 mg PO DAILY RF: 0 black cohosh 200 mg capsule 200 mg PO DAILY RF: 0 oxycodone 5 mg tablet 5 mg PO Q6H PRN (Reason: pain) Qty: 30 RF: 0 acetaminophen [Tylenol] 325 mg capsule 650 mg PO QID PRN (Reason: pain) Qty: 60 RF: 0 Referrals: Oleksandr Prince MD [Primary Care Provider] - <Jazzmine Collier DO - Last Filed: 08/02/20 09:05> Cosign ED Attending Cosignature Attestation: I was immediately available in the department for consultation. This documentation has been reviewed. Supervised by Jazzmine Collier DO
[2020-07-27] MEDS: KETOROLAC 60 MG/2 ML VIAL 30 MG IM (14:48)
[2020-07-27] MEDS: SODIUM CHLORIDE 0.9% 1,000 ML 1000 ML IV (14:48)
[2020-07-27] MEDS: ONDANSETRON 4 MG/2 ML INJ IV (14:49)
[2020-07-27 15:04] LABS: Add Manual Diff / Slide Review NO; Basophils Absolute Auto 100 /uL (0-100); Basophils Percent Auto 0.8 % (0-2); Eosinophils Absolute Auto 100 /uL (0-450); Eosinophils Percent Auto 1.7 % (2-4); Hematocrit 39.6 % (36-46); Hemoglobin 13.7 g/dL (12.0-16.0); Lymphocytes Absolute Auto 2500 /uL (1100-4500); Lymphocytes Percent Auto 30.4 % (25-40); Mean Corpuscular HGB Conc 34.6 % (30-36); Mean Corpuscular Hemoglobin 30.7 PG (26-34); Mean Corpuscular Volume 88.7 fL (80-100); Monocytes Absolute Auto 700 /uL (0-900); Monocytes Percent Auto 8.3 % (3-14); Neutrophils Absolute Auto 4800 /uL (1500-7000); Neutrophils Percent Auto 58.8 % (50-75); Platelet Count 212 X10^3/uL (150-400); Red Blood Cell Count 4.46 X10^6/uL (4.0-5.2); Red Cell Distribution Width 12.4 % (11.6-14.8); White Blood Cell Count 8.1 X10^3/uL (4.5-11.0)
[2020-07-27 15:09] LABS: INR 1.2 (0.9-1.3); Prothrombin Time 13.7 SECONDS (10.1-12.7)
[2020-07-27 15:11] LABS: PTT Partial Thromboplastin Tim 28 SECONDS (26.4-36.2)
[2020-07-27 15:14] LABS: Alanine Aminotransferase 22 IU/L (<35); Albumin 4.4 g/dL (3.5-5.0); Albumin Globulin Ratio 1.4 (1.0-2.8); Alkaline Phosphatase 63 U/L (38-126); Aspartate Aminotransferase 26 IU/L (14-36); Bilirubin Total 0.8 mg/dL (0.2-1.3); Blood Urea Nitrogen 9 mg/dL (7-17); Calcium 9.3 mg/dL (8.4-10.2); Carbon Dioxide 28 mmol/L (22-32); Chloride 106 mmol/L (98-107); Estimated Glomerular Filt Rate > 60.0 mL/min (>60); Globulin 3.2 g/dL (1.7-4.1); Glucose 123 mg/dL (70-100); HEMOLYSIS < 15 (0-50); Lipase 76 U/L (23-300); Potassium 3.7 mmol/L (3.4-5.1); Sodium 141 mmol/L (137-145); Total Protein 7.6 g/dL (6.3-8.2)
== END 2020-07-27 17:07 | disposition home or self-care (01) ==
PROVIDERS: Emergency Provider Nurse Practitioner; PCP Family Medicine
DX: R10.84 Generalized abdominal pain (principal); R11.0 Nausea; I25.10 Atherosclerotic heart disease of native coronary artery without angina pectoris
CPT/HCPCS: 36415; 74177; 80053; 81003; 81025; 83690; 85025; 85610; 85730; 93005; 93010; 96361; 96372; 96374; 99284; J1885; J2405

== ENCOUNTER → 2023-05-02 14:04 | Outpatient (CLI) | payer OTHER, SELFPAY ==
--- NOTE | 2023-05-02 | DI.MG.S_ITS ---
BILATERAL DIGITAL SCREENING MAMMOGRAM 3D/2D WITH CAD: 05/02/2023 CLINICAL: Routine screening. Default Baseline exam. No prior exams were available for comparison. There are scattered areas of fibroglandular density in both breasts (category b / 25%-50% glandular tissue). Current study was also evaluated with a Computer Aided Detection (CAD) system. There are grouped calcifications in the right breast at 11 o'clock middle depth. There is an asymmetry in the left breast anterior depth medial region seen on the craniocaudal view only. No other significant masses or calcifications are seen in either breast. IMPRESSION: INCOMPLETE: NEEDS ADDITIONAL IMAGING EVALUATION The grouped calcifications in the right breast at 11 o'clock middle depth are indeterminate. Additional views with possible ultrasound are recommended. The asymmetry in the left breast anterior depth medial region seen on the craniocaudal view only is indeterminate. Additional views with possible ultrasound are recommended. Based on the Tyrer Cuzick model (a risk assessment model) the patient's lifetime risk is 7.9% and her 10 year risk is 3.0%. According to the ACR, ACS, and NCCN guidelines, an annual breast MRI exam along with mammogram is recommended if the patient's lifetime risk is 20% or greater. This exam was interpreted at Station ID: [id number]. NOTE: For mammograms, a report in lay terms will be sent to the patient. Approximately 15% of breast malignancies will not be visualized mammographically. In the management of a palpable breast mass, a negative mammogram must not discourage biopsy of a clinically suspicious lesion. Electronically Signed By: Horacio friedman/demetria:05/02/2023 16:53:13 letter sent: Additional Imaging Needed ACR BI-RADS Category 0: Incomplete 3340F
== END ==
PROVIDERS: PCP Family Medicine; Referring Provider Family Medicine; Visit Provider Family Medicine
DX: Z12.31 Encounter for screening mammogram for malignant neoplasm of breast (principal)
CPT/HCPCS: 77063; 77067

== ENCOUNTER → 2023-05-21 13:01 | Outpatient (CLI) | payer OTHER, SELFPAY ==
--- NOTE | 2023-05-21 13:02 | DI.MG.S_ITS ---
BILATERAL DIGITAL DIAGNOSTIC MAMMOGRAM 3D/2D: 05/21/2023 CLINICAL: Additional evaluation requested from prior study. Comparison is made to exam dated: 05/02/2023 mammogram - [facility]. There are scattered areas of fibroglandular density in both breasts (category b / 25%-50% glandular tissue). There is a benign dystrophic round calcification in the right breast at 11 o'clock middle depth. There is an asymmetry in the left breast anterior depth medial region seen on the craniocaudal view only. This is not seen in additional views. No other significant masses or calcifications are seen in either breast. IMPRESSION: BENIGN There is no mammographic evidence of malignancy. There is a benign dystrophic round calcification in the right breast at 11 o'clock middle depth. The asymmetry in the left breast anterior depth medial region is consistent with fibroglandular tissue and is benign. A 1 year screening mammogram is recommended. Exam findings were conveyed to the patient. Based on the Tyrer Cuzick model (a risk assessment model) the patient's lifetime risk is 7.9% and her 10 year risk is 3.0%. According to the ACR, ACS, and NCCN guidelines, an annual breast MRI exam along with mammogram is recommended if the patient's lifetime risk is 20% or greater. This exam was interpreted at Station ID: [id number]. NOTE: For mammograms, a report in lay terms will be sent to the patient. Approximately 15% of breast malignancies will not be visualized mammographically. In the management of a palpable breast mass, a negative mammogram must not discourage biopsy of a clinically suspicious lesion. Electronically Signed By: Reilly Garcia M.D. slc/:05/21/2023 13:36:23 letter sent: Normal Exam ACR BI-RADS Category 2: Benign Finding(s) 3342F
== END ==
PROVIDERS: PCP Family Medicine; Referring Provider Family Medicine; Visit Provider Family Medicine
DX: R92.8 Other abnormal and inconclusive findings on diagnostic imaging of breast (principal); R92.1 Mammographic calcification found on diagnostic imaging of breast; N64.89 Other specified disorders of breast
CPT/HCPCS: 77066; G0279